=== PATIENT | female | born 1955 | race Caucasian/White ===

== ENCOUNTER 2016-10-06 04:40 | Inpatient (IN) | payer BC ==
--- NOTE | 2016-10-05 13:28 | HP ---
DATE OF ADMISSION: 10/06/2016 Manasa Head is 60-year-old patient seen with symptomatic left knee osteoarthritis. After having treatment options discussed, she elected to proceed with left total knee arthroplasty. Consent was obtained. Medical clearance by Dr. Jaramillo. PAST MEDICAL HISTORY: Hypothyroidism, osteoarthritis. PAST SURGICAL HISTORY: Left knee arthroscopy. DAILY MEDICATIONS: 1. Synthroid. 2. Ibuprofen. [address]. [address] as needed. Allergies are none reported. SOCIAL HISTORY: Patient denies current tobacco use. Physical evaluation of the left knee: Her range of motion is -3/4 to 115 degrees. There is tenderness along the medial and lateral joint lines. Positive medial and lateral Quoc's. Ligaments are stable. There is crepitus along the lateral and patellofemoral compartments with range of motion. There is pain on patellofemoral compression. Hip rotation is without pain. Distal neurovascular exam is intact. Radiographs of the left knee reveal severe lateral and moderate patellofemoral compartment osteoarthritis. IMPRESSION: Left knee osteoarthritis. PLAN: Left total knee arthroplasty.
[2016-10-06] MEDS ORDERED: TRANEXAMIC ACID 1,000 MG in SODIUM CHLORIDE 0.9% 100 ML IVPB ONE ×4 (05:00)
[2016-10-06] MEDS ORDERED: MELOXICAM 7.5 MG TAB PO ONE (05:00)
[2016-10-06] MEDS ORDERED: ACETAMINOPHEN TAB 500 MG TAB PO ONE (05:00)
[2016-10-06] MEDS ORDERED: MIDAZOLAM 2 MG/2 ML VIAL IV PRN (05:58)
[2016-10-06] MEDS ORDERED: LACTATED RINGERS 1,000 ML IV SCH (05:58)
[2016-10-06] MEDS ORDERED: DEXAMETHASONE SOD PHOSPHATE 10 MG/ML 1 ML VIAL IV ONE (05:58)
[2016-10-06] MEDS ORDERED: LIDOCAINE 1% 20 ML VIAL (10MG/ML) FOR IV START INTRADERMA PRN (05:58)
[2016-10-06] MEDS ORDERED: FAMOTIDINE 20 MG/2 ML VIAL IV PRN (05:58)
[2016-10-06] MEDS ORDERED: ONDANSETRON 4 MG/2 ML VIAL IVP ONE (05:58)
[2016-10-06] MEDS ORDERED: ROPIVACAINE 246.25 MG, EPINEPHrine 0.5 MG, KETOROLAC 30 MG, cloNIDine HCL/PF 80 MCG, WA... MISCELLANE ONE ×5 (11:42)
[2016-10-06] MEDS ORDERED: SODIUM CHLORIDE 0.9% 100 ML BAG ONE ×2 (11:53)
[2016-10-06] MEDS ORDERED: MIDAZOLAM 2 MG/2 ML VIAL ONE (11:53)
[2016-10-06] MEDS ORDERED: HYDROmorphone (PF) 1 MG/ML ONE (11:53)
[2016-10-06] MEDS ORDERED: ceFAZolin 10 GM VIAL IVPB ONE (11:53)
[2016-10-06] MEDS ORDERED: SODIUM CHLORIDE 0.9% IRRIG 3,000 ML BAG IRRIGATION ONE (11:53)
[2016-10-06] MEDS ORDERED: ceFAZolin 1,000 MG VIAL ONE (11:53)
[2016-10-06] MEDS ORDERED: LACTATED RINGERS 1,000 ML BAG IV ONE (11:53)
[2016-10-06] MEDS ORDERED: LIDOCAINE 1% INJ 10MG/ML (20 ML MDV) ONE (11:53)
[2016-10-06] MEDS ORDERED: TRANEXAMIC ACID 1,000 MG/10 ML VIAL ONE (11:53)
[2016-10-06] MEDS ORDERED: PROPOFOL 10 MG/ML 20 ML VIAL IV ONE (11:53)
[2016-10-06] MEDS: ceFAZolin 2 GM in SODIUM CHLORIDE 0.9% 100 ML IVPB ONE ×3 (12:06→15:21)
[2016-10-06] MEDS: LACTATED RINGERS 1,000 ML IV ONE ×3 (12:34→15:21)
[2016-10-06] MEDS: ceFAZolin 3,000 MG in SODIUM CHLORIDE 0.9% IRRIGATIO 3,000 ML IRRIGATION ONE ×3 (12:35→15:22)
[2016-10-06] MEDS ORDERED: ROPIVACAINE 1,100 MG, SODIUM CHLORIDE 0.9% 330 ML MISCELLANE PRN ×2 (12:43)
--- NOTE | 2016-10-06 12:44 | P.ONQ ---
Anesthesiology Proc Note - PNB - Peripheral Nerve Block Performed Left Adductor Canal Indication: Acute Post-Operative Pain, Requested by physician (Fernando) Sedation Type: Sedate with meaningful contact maintained Preparation: Sterile Dressing Position: Supine Catheter: Indwelling Needle Types: On-Q Needle Size: 100mm (4") Needle Gauge: 20 Injectate: 0.5% Ropivacaine (see comment for volume) (23cc) Blood Aspirated: No Pain Paresthesia on Injection Noted: No Resistance on Injection: Normal Events: Uneventful and Well Tolerated
[2016-10-06] MEDS ORDERED: ONDANSETRON 4 MG/2 ML VIAL IVP PRN (13:59)
[2016-10-06] MEDS ORDERED: NALOXONE 0.4 MG/ML 1 ML VIAL IV PRN (13:59)
[2016-10-06] MEDS ORDERED: TEMAZEPAM 15 MG CAP PO PRN (13:59)
[2016-10-06] MEDS ORDERED: HYDROcodone/APAP 7.5-325MG 1 EACH TAB PO PRN ×2 (13:59)
[2016-10-06] MEDS ORDERED: HYDROmorphone 1 MG/ML 1 ML SYRINGE IVP PRN ×2 (13:59)
--- NOTE | 2016-10-06 13:59 | P.OP ---
Date of Procedure: 10/06/16 Preoperative Diagnosis: Left knee osteoarthritis Postoperative Diagnosis: Left knee osteoarthritis Procedure(s) Performed: Left total knee arthroplasty Implants: 1. Tavo persona left size 6 cemented cruciate retaining femoral component 2. Tavo persona size D left cemented tibial component 3. Tavo persona 10 mm medial congruent polyethylene tibial insert 4. Tavo persona 35 mm all polyethylene cemented patella Anesthesia: local (Adductor canal block), spinal Surgeon: Ravi King Table Assembler [employer] #1: Sacha Valderrama Estimated Blood Loss (ml): 300 Pathology: other (Bone) Condition: stable Disposition: PACU Indications for Procedure: 60-year-old patient seen with symptomatic left knee osteoarthritis. After having treatment options discussed, she elected to proceed with left total knee arthroplasty. Operative Findings: See description of procedure Description of Procedure: Patient was taken to the operative suite after having undergone an abductor canal block by department of anesthesia. Patient underwent a spinal anesthetic by the department of anesthesia. Patient was given preoperative IV intake antibiotics and TXA. A well-padded tourniquet was placed about the left lower extremity. The lower extremity was then prepped and draped in the normal sterile orthopedic fashion. A standard anterior incision was made sharply through skin. Dissection was taken down through the subcutaneous soft tissues down to the extensor mechanism. A medial arthrotomy was performed, patella was everted and knee was flexed. There was advanced osteoarthritis noted. A proximal tibial cutting guide was positioned. Proximal tibial cut was made. A distal intramedullary femoral cutting guide was positioned, distal femoral cut made. We placed the appropriate sizing guide and selected the appropriate size. A distal 4-in-1 femoral cutting block was positioned, distal femoral cuts were made. We now placed a trial femoral component into position, along with an appropriate size tibial tray and insert. We now took the knee through range of motion and had full extension good flexion and good overall soft tissue balance noted. At this point we're noticing some soft tissue bleeding and the tourniquet was insufflated to 350. The patella was everted and a flush cut made with patellar quad tendon. We templated the patella, appropriate drill holes were made. An appropriate trial patella was positioned, knee was taken through full range of motion with the patella tracking very nicely. The trial patella was removed. Drill holes were made through the femoral component. All trial components were removed after marking off the appropriate rotation of the tibia. Retractors were now positioned along the proximal tibia. An appropriate keel punch was made with the appropriate size tibial guide. At this point appropriate size implants were chosen and opened. The joint was irrigated copiously with pulse lavage mechanical irrigation. The deep soft tissues were infiltrated local analgesic. We mixed antibiotic methylmethacrylate. Once the methyl methacrylate was ready, the tibial component was cemented into place removing any excess methylmethacrylate. The femoral component was cemented into place removing the removing any excess methylmethacrylate. We then inserted the appropriate size polyethylene tibial insert. We made sure that it was locked into position. We took the knee into full extension, and then back in a flexion making sure we had removed any excess methylmethacrylate. The patellar component was then cemented down and secured with clamp. Excess methylmethacrylate removed. We kept the knee in full extension, patellar clamp in position until methylmethacrylate had hardened. Once it had hardened the patellar clamp was removed. The knee was taken through full range of motion. The patella tracked nicely. There was good soft tissue balancing. The tourniquet was now released. A second gram of TXA was given. Additional hemostasis was achieved via electrocautery. The superficial soft tissues were infiltrated local analgesic. The extensor mechanism was repaired with Vicryl. We checked the repair with range of motion and it was stable. The subcutaneous soft tissues were repaired with Vicryl in layers. The skin was approximated with pernio/Dermabond. Sterile dressings were applied followed by loose web roll and Jasper bandage. The patient was transferred to a bed, and taken to recovery in stable and satisfactory condition. Sacha JIMÉNEZ assisted with the procedure.
[2016-10-06] MEDS: LACTATED RINGERS 1,000 ML IV SCH ×3 (14:35→23:31)
[2016-10-06] MEDS: HYDROmorphone 1 MG/ML 1 ML SYRINGE IVP PRN ×5 (15:01→23:17)
--- NOTE | 2016-10-06 15:05 | XR ---
EXAMINATION TYPE: XR knee limited LT DATE OF EXAM: 10/06/2016 2:47 PM CLINICAL HISTORY: Left knee pain and arthritis status post total knee replacement. TECHNIQUE: Portable AP and crosstable lateral views of the left knee are obtained immediately postop eratively. COMPARISON: None FINDINGS: Metallic hardware from total left knee arthroplasty is seen and appears satisfactory in al ignment and position. There is evidence of recent surgery with diffuse subcutaneous gas and soft tis deisy swelling noted. IMPRESSION: METALLIC HARDWARE FROM TOTAL LEFT KNEE ARTHROPLASTY IS SATISFACTORY IN ALIGNMENT.
[2016-10-06] MEDS: traMADol 50 MG TAB PO SCH ×2 (18:07→21:14)
[2016-10-06] MEDS ORDERED: ALPRAZolam 0.25 MG TAB PO PRN (19:11)
[2016-10-06] MEDS: ATORVASTATIN 10 MG TAB PO SCH (20:29)
[2016-10-06] MEDS: ACYCLOVIR 800 MG TAB PO SCH (20:29)
[2016-10-06] MEDS: ceFAZolin 2 GM in SODIUM CHLORIDE 0.9% 100 ML IVPB SCH (20:29)
[2016-10-06] MEDS: SENNOSIDES-DOCUSATE SODIUM 1 EACH TAB PO SCH (20:30)
--- NOTE | 2016-10-06 22:39 | CONS ---
DATE OF CONSULTATION: 10/06/2016 REASON FOR CONSULTATION: Medical management requested by Dr. King. CONSULTATION: This is a 60-year-old patient of Dr. Maureen Jaramillo whose chronic stable medical conditions include hypothyroid, hyperlipidemia, depression. Patient has undergone a left total knee arthroplasty. Post procedure no chest pain or shortness of breath, nausea or vomiting. No dizziness. Patient did tolerate light supper. Pain is controlled. REVIEW OF SYSTEMS: CONSTITUTIONAL: None. HEENT: None. RESPIRATORY: None. CARDIOVASCULAR: None. GASTROINTESTINAL: None. GENITOURINARY: None. MUSCULOSKELETAL: Aches and pains in the joints. Dermatological: None. HEMATOLOGICAL: None. LYMPHATIC: None. PSYCHIATRY: Depression, controlled. NEUROLOGICAL: None. Past medical history of osteoarthritis, hypothyroid, hyperlipidemia, depression, osteoarthritis. PAST SURGICAL HISTORY: Breast surgery, removal ( ) tissue, D&C, arthroscopy left knee, lumpectomy right breast. Past psych history: Anxiety, depression. SOCIAL HISTORY: The patient smoked a pack a day on and off for the last about 10 to 15 years; stopped about 20 years ago. . FAMILY HISTORY: Cancer skin cancer, dementia. HOME MEDICATIONS: 1. Mevacor 40 mg p.o. q.h.s. 2. Synthroid 100 mcg p.o. daily. 3. Motrin 800 mg p.o. t.i.d. p.r.n. 4. [place] 5, 1 tablet p.o. q.6 p.r.n. 5. Prozac 40 mg p.o. daily. 6. Vitamin B12 1000 mcg p.o. daily. 7. Calcium with vitamin D 1 tablet p.o. daily p.r.n. 8. Fiorinal ( ) p.r.n., 9. ( ) 800 mg p.o. b.i.d. 10. Xanax 0.25 p.o. daily p.r.n. ALLERGIES TO ADHESIVE. On examination, temperature 97.9, pulse 57, respiration 16, blood pressure 130/86, pulse ox 95% on room air. GENERAL APPEARANCE: Average built, BMI of ( ), sitting up in bed, not in distress. EYES: Pupils equal. Conjunctivae normal. HEENT: External appearance of nose and ears a normal. Oral cavity normal. NECK: JVD not raised. Mass not palpable. RESPIRATORY: Effort normal. Lungs are clear. CARDIOVASCULAR: First and second sounds normal. No edema. ABDOMEN: Soft, nontender. Liver and spleen not palpable. LYMPHATIC: No lymph nodes palpable in neck or axillae. PSYCHIATRY: Alert and oriented x3. Mood and affect normal. EXTREMITIES : Left knee in a dressing. INVESTIGATIONS: No blood work. ASSESSMENT: 1. Left total knee arthroplasty. 2. Primary osteoarthritis, osteoarthritis, multiple joints. 3. Hypothyroidism. 4. Hyperlipidemia. 5. Depression not otherwise specified. 6. Obesity body mass index 30. PLAN: Resume patient's home medications. For DVT prophylaxis, patient is on Lovenox per Dr. King. Care was discussed with the patient, all questions were answered. Thank you, Dr. King.
[2016-10-07] MEDS: ceFAZolin 2 GM in SODIUM CHLORIDE 0.9% 100 ML IVPB SCH (03:23)
[2016-10-07] MEDS: HYDROmorphone 1 MG/ML 1 ML SYRINGE IVP PRN ×2 (05:34→08:20)
[2016-10-07] MEDS: LEVOTHYROXINE 100 MCG TAB PO SCH (05:40)
[2016-10-07 08:07] LABS: Basophils # (A) 0.1 k/uL (0-0.2); Basophils % (A) 1 %; CHCM 32.7; Eosinophils % (A) 0 %; HCT 30.8 % (34.0-46.0); HDW 2.28; HGB 9.8 gm/dL (11.4-16.0); Luc # (Auto) 0.19; Luc % (Auto) 2; Lymphocytes # (A) 0.9 k/uL (1.0-4.8); Lymphocytes % (A) 9 %; MCH 31.4 pg (25.0-35.0); MCV 98.1 fL (80.0-100.0); Mean Platelet Volume 8.2; Monocytes # (A) 0.5 k/uL (0-1.0); Monocytes % (A) 5 %; Neutrophils # (A) 8.2 k/uL (1.3-7.7); Neutrophils % (A) 82 %; RBC 3.13 m/uL (3.80-5.40); RDW 12.9 % (11.5-15.5); WBC (Perox) 10.62
[2016-10-07] MEDS: FAMOTIDINE 20 MG TAB PO SCH (08:21)
[2016-10-07] MEDS: MELOXICAM 7.5 MG TAB PO SCH (08:21)
[2016-10-07] MEDS: FLUoxetine HCL 20 MG CAP PO SCH (08:21)
[2016-10-07] MEDS: ENOXAPARIN 30 MG/0.3 ML SYRINGE SQ SCH ×2 (08:21→20:45)
[2016-10-07] MEDS: ACYCLOVIR 800 MG TAB PO SCH ×2 (08:22→20:44)
[2016-10-07] MEDS: CYANOCOBALAMIN 500 MCG TAB PO SCH (08:22)
--- NOTE | 2016-10-07 08:46 | P.PN ---
Progress Note - Text The patient is status post left adductor canal catheter placement. The catheter was placed for postoperative pain control, status post total left knee arthroplasty. Ropivacaine 0.2% is infusing at 12 mLs per hour. The patient has no complaints of[ ] lower extremity numbness or weakness. Patient's VAS score is 3-10. Assessment: Patient's adductor canal catheter is in place and working appropriately. Plan: continue infusion and adjust it as needed.
[2016-10-07] MEDS: traMADol 50 MG TAB PO SCH ×4 (09:16→22:31)
[2016-10-07] MEDS: MULTIVITAMINS, THERA 1 EACH TAB PO SCH (12:15)
[2016-10-07] MEDS: hydrOXYzine PAMOATE 25 MG CAP PO PRN ×2 (12:16→18:19)
--- NOTE | 2016-10-07 14:34 | P.PN ---
Subjective Principal diagnosis: Status post left total knee arthroplasty Patient seen today resting in her hospital bed, her is present at bedside. Patient appears comfortable, no acute problems. She's been ambulating with therapy at this time. She is tolerating a regular diet. In her catheter was discontinued, no issues of bleeding. She denies headaches, lightheadedness, chest pain, shortness of breath, fever chills. Objective - Vital Signs Vital signs: Vital Signs Temp 97.9 F 10/07/16 14:32 Pulse 73 10/07/16 14:32 Resp 16 10/07/16 14:32 BP 100/51 10/07/16 14:32 Pulse Ox 97 10/07/16 14:32 Intake & Output 10/06/16 10/07/16 10/07/16 18:59 06:59 18:59 Intake Total 2681 360 Output Total 850 2100 300 Balance 1831 -2100 60 Intake: IV 2201 Oral 480 360 Output: Urine 550 2100 300 Uretheral (Thompson) 2100 300 Estimated Blood Loss 300 Other: Voiding Method Indwelling Catheter Indwelling Catheter Indwelling Catheter - Exam Left lower extremity: Incision is clean, dry and intact. Minimal soft tissue swelling present around the knee. Calf is soft, no tenderness with palpation. Plantar flexion, dorsiflexion, EHL, FHL are intact. Sensory exam to light touch throughout the extremities intact, dorsal pedis pulses 2+. - Labs CBC & Chem 7: 10/07/16 07:27 Labs: Abnormal Lab Results - Last 24 Hours (Table) 10/07/16 Range/Units 07:27 RBC 3.13 L (3.80-5.40) m/uL Hgb 9.8 L (11.4-16.0) gm/dL Hct 30.8 L (34.0-46.0) % Neutrophils # 8.2 H (1.3-7.7) k/uL Lymphocytes # 0.9 L (1.0-4.8) k/uL Assessment and Plan Plan: Assessment: 1. Postop day #1 status post left total knee arthroplasty Plan: 1. Pain control, continue use of oral medication 2. Continue with CPM and physical therapy 3. Daily dressing changes/ice and elevate 4. Encourage incentive spirometer 5. GI and DVT prophylaxis, continue Lovenox 6. Medical recommendations 7. Discharge planning: Patient will be likely discharged home tomorrow Time with Patient: Less than 30
[2016-10-07] MEDS ORDERED: HYDROcodone/APAP 10-325MG 1 EACH TAB PO PRN (17:32)
[2016-10-07] MEDS: HYDROcodone/APAP 10-325MG 1 EACH TAB PO PRN (18:20)
[2016-10-07] MEDS ORDERED: HYDROmorphone 1 MG/ML 1 ML SYRINGE IVP PRN (18:34)
[2016-10-07] MEDS: ATORVASTATIN 10 MG TAB PO SCH (20:44)
[2016-10-07] MEDS: SENNOSIDES-DOCUSATE SODIUM 1 EACH TAB PO SCH (20:44)
[2016-10-08 01:15] VITALS: RESP 16
[2016-10-08] MEDS: HYDROcodone/APAP 10-325MG 1 EACH TAB PO PRN ×2 (05:39→10:55)
[2016-10-08] MEDS: LEVOTHYROXINE 100 MCG TAB PO SCH (05:39)
--- NOTE | 2016-10-08 07:57 | PN ---
DATE OF SERVICE: 10/07/2016 PRESENTING COMPLAINT: Knee surgery. INTERVAL HISTORY: Patient is status post knee surgery, doing well. Did not sleep too well last night, tolerated a diet. No chest pains, short of breath, nausea or vomiting. Did work with Physical Therapy. I saw the patient yesterday on 10/07/2016. Review of systems done for constitutional, cardiovascular, GI, pulmonary, musculoskeletal; relevant findings as above. Current medications are reviewed. On examination, temperature 97.9, pulse 93, respirations 16, blood pressure 100/71, pulse ox 97% on room air. GENERAL APPEARANCE: Lying in bed, comfortable. EYES: Pupils equal. Conjunctivae normal. NECK: JVD not raised. Mass not palpable. Respiratory effort normal. Lungs are clear. CARDIOVASCULAR: First and second sounds normal. No edema. ABDOMEN: Soft, nontender. Liver and spleen are not palpable. PSYCHIATRY: Alert and oriented x3. Mood and affect was normal. INVESTIGATIONS: White count 10, hemoglobin 9.8. ASSESSMENT: 1. Left total knee arthroplasty. 2. Hypothyroidism. 3. Hyperlipidemia. 4. Depression, not otherwise specified. 5. Obesity, body mass index of 30. PLAN: Patient is clinically doing well. Continue current medication and treatment plan. Thank you Dr. King.
[2016-10-08] MEDS: MELOXICAM 7.5 MG TAB PO SCH (10:02)
[2016-10-08] MEDS: CYANOCOBALAMIN 500 MCG TAB PO SCH (10:02)
[2016-10-08] MEDS: ACYCLOVIR 800 MG TAB PO SCH (10:03)
[2016-10-08] MEDS: FLUoxetine HCL 20 MG CAP PO SCH (10:03)
[2016-10-08] MEDS: ENOXAPARIN 30 MG/0.3 ML SYRINGE SQ SCH (10:03)
[2016-10-08] MEDS: FAMOTIDINE 20 MG TAB PO SCH (10:03)
[2016-10-08] MEDS: traMADol 50 MG TAB PO SCH ×2 (10:14→14:29)
--- NOTE | 2016-10-08 11:15 | P.PN ---
Subjective Principal diagnosis: Status post left total knee arthroplasty Patient seen today resting in her hospital bed. Patient appears comfortable, no acute problems. Patient did have breakthrough pain last night that required IV pain medication, this has improved. She denies headaches, lightheadedness, chest pain, shortness of breath, fever chills. Objective - Vital Signs Vital signs: Vital Signs Temp 99.4 F 10/08/16 07:00 Pulse 95 10/08/16 07:00 Resp 16 10/08/16 07:00 BP 120/72 10/08/16 07:00 Pulse Ox 93 L 10/08/16 07:00 Intake & Output 10/07/16 10/08/16 10/08/16 18:59 06:59 18:59 Intake Total 720 Output Total 300 Balance 420 Weight 79.379 kg Intake: Oral 720 Output: Urine 300 Uretheral (Thompson) 300 Other: Voiding Method Indwelling Catheter Toilet # Voids 1 - Exam Left lower extremity: Incision is clean, dry and intact. Minimal soft tissue swelling present around the knee. Calf is soft, no tenderness with palpation. Plantar flexion, dorsiflexion, EHL, FHL are intact. Sensory exam to light touch throughout the extremities intact, dorsal pedis pulses 2+. - Labs CBC & Chem 7: 10/07/16 07:27 Assessment and Plan Plan: Assessment: 1. Postop day #2 status post left total knee arthroplasty Plan: 1. Pain control, continue use of oral medication 2. Continue with CPM and physical therapy 3. Daily dressing changes/ice and elevate 4. Encourage incentive spirometer 5. GI and DVT prophylaxis, discharged home on aspirin 325 mg twice a day 6. Medical recommendations 7. Discharge planning: Patient will be discharged home today Time with Patient: Less than 30
--- NOTE | 2016-10-08 11:17 | P.DS ---
Providers Date of admission: 10/06/16 10:44 Expected date of discharge: 10/08/16 Attending physician: Ravi King Consults: 10/06/16 13:59 Consult Physician Routine Consulting Provider: Ariel Tejeda Consult Reason/Comments: Medical management Do you want consulting provider notified?: Yes Primary care physician: Maureen Jaramillo [facility] Course: Date of admission: 10/06/2016 Date of discharge: 10/08/2016 Admission diagnosis: Status post left total knee arthroplasty Discharge diagnosis: Same Attending physician: Dr. King Surgical procedures: Left total knee arthroplasty Brief history: Patient is a 60-year-old female with a history of progressive primary left knee osteoarthritis. At this point patient has failed conservative treatment measures and has opted to proceed with a elective left total knee arthroplasty. Hospital course: Details of patient's surgery can be found in operative report. Patient tolerated the procedure well and was subsequently transported to orthopedic floor. Patient's orthopeidc and medical care was provided daily. Patient had daily laboratory tests performed for evaluation of overall blood counts. Patient had daily physical therapy to include strengthening range of motion as well as education with walker ambulation. Patient had daily CPM usage as part of their physical therapy program. Patient was treated with Lovenox for their postoperative DVT prophylaxis during their inpatient stay. Patient was noted to have a relatively uneventful postoperative course. Patient reported satisfactory pain control with oral pain medications by postoperative day 0. Patient showed satisfactory progress with physical therapy. Patient moved steadily through the program and had no difficulty meeting the goals by postoperative day 2. Given patient's otherwise satisfactory course and having met physical therapy goals, plan is to discharge patient home on postoperative day 2. Discharge condition/disposition: Patient will be discharged home in stable condition. Discharge medications: Instructions are given on resumption of patient's normal daily medications per primary care recommendation, in addition patient will be prescribed [place] 10 mg/325 mg, tramadol 50 mg, Colace 100 mg, aspirin 325 mg. Discharge instructions: 1. Wound care and infection precautions, keep incision dry and covered while showering, no lotions, creams, moisturizers. No soaking, tubs, pools, hottubs. Do not scrub over the incision. 2. Weight-bear as tolerated with walker / cane until follow-up. 3. Ice and elevate when necessary. Do not exceed 20 minutes per hour with ice pack. 4. Utilize compression sleeve until seen at first follow up appointment. 5. Visiting nursing care. 6. Home physical therapy including home CPM. 7. Pain meds and anticoagulants per prescription. 8. Pain medication has potential to cause constipation. Increase oral fluid and fiber intake. Contact primary care provider if you have not had a bowel movement within 48 hours after discharge 9. No anti-inflammatory medication until discussed at first post operative visit, this including Motrin, Aleve, Mobic, Diclofenac. 10. Follow up in office at 2 weeks postop with Emir Valderrama PA-C 11. Follow up with your primary care doctor 7-10 days after discharge. 12. Contact [facility] with any questions, . Procedures: Left total knee arthroplasty Patient Condition at Discharge: Good Plan - Discharge Summary New Discharge Prescriptions: Aspirin 325 mg PO BID #60 tab Docusate [Colace] 100 mg PO DAILY #20 capsule Hydrocodone/Acetaminophen [[place] 10-325] 1 - 2 each PO Q6H PRN #60 tab PRN Reason: Pain traMADol HCl [Ultram] 50 mg PO Q6H PRN #40 tab PRN Reason: Pain Discharge Medication List ALPRAZolam [Xanax] 0.25 mg PO DAILY PRN 09/24/16 [History] Acetaminophen [Tylenol Arthritis] 650 mg PO Q6H PRN 09/24/16 [History] Acyclovir [Zovirax] 800 mg PO BID 09/24/16 [History] Butalb/Asprin/Caff 50-325-40Mg [Fiorinal 50-325-40 MG] 1 - 2 cap PO BID PRN [History] Calcium Carbonate/Vitamin D3 [Calcium 500-Vit D3 600 Tablet] 1 tab PO DAILY [History] Cyanocobalamin [Vitamin B-12] 1,000 mcg PO DAILY 09/24/16 [History] FLUoxetine HCL [PROzac] 40 mg PO DAILY 09/24/16 [History] Levothyroxine Sodium [Synthroid] 100 mcg PO DAILY 09/24/16 [History] Lovastatin [Mevacor] 40 mg PO HS 09/24/16 [History] Aspirin 325 mg PO BID #60 tab 10/08/16 [Rx] Docusate [Colace] 100 mg PO DAILY #20 capsule 10/08/16 [Rx] Hydrocodone/Acetaminophen [[place] 10-325] 1 - 2 each PO Q6H PRN #60 tab 10/08/16 [Rx] traMADol HCl [Ultram] 50 mg PO Q6H PRN #40 tab 10/08/16 [Rx] Follow up Appointment(s)/Referral(s): [facility], [NON-STAFF] - Sacha Valderrama PAC [PHYSICIAN REPA[employer]] - 2 Weeks Activity/Diet/Wound Care/Special Instructions: Walker - has at home CPM - ordered by Dr. Freeman' office - call for delivery upon discharge Orthopedic Discharge Instructions: 1. Wound care and infection precautions, keep incision dry and covered while showering, no lotions, creams, moisturizers. No soaking, pools, hot tubs. Do not scrub over incision. 2. Weight-bear as tolerated with walker / cane until follow-up. 3. Ice and elevate when necessary. Do not exceed 20 minutes per hour with ice pack. 4. Utilize compression sleeve until seen at first follow up appointment. 5. Visiting nursing care. 6. Home physical therapy including home CPM. 7. Pain meds and anticoagulants per prescription. 8. Pain medication has potential to cause constipation. Increase oral fluid and fiber intake. Contact primary care provider if you have not had a bowel movement within 48 hours after discharge. 9. No anti-inflammatory medication until discussed at first post operative visit, this including Motrin, Aleve, Mobic, Diclofenac. 10. Follow up in office at 2 weeks postop with Emir Valderrama PA-C 11. Follow up with your primary care doctor 7-10 days after discharge. 12. Contact [facility] with any questions, . Discharge Disposition: HOME WITH HOME HEALTH SERVICES
[2016-10-08] MEDS: MULTIVITAMINS, THERA 1 EACH TAB PO SCH (14:29)
[2016-10-08 14:40] VITALS: BP 113/78; PULSE 89; TEMP 97.5
--- NOTE | 2016-10-08 21:55 | PN ---
DATE OF SERVICE: 10/08/2016 PRESENTING COMPLAINT: Knee surgery. INTERVAL HISTORY: Patient was seen by me earlier today, status post knee surgery; doing much better. She has been out of bed and did work with Physical Therapy. Did tolerate her meals. Review of systems done for constitutional, cardiovascular, GI, pulmonary; relevant findings as above. Current medications are reviewed. On examination, temperature 99.4, pulse 95, respiration 16, blood pressure 120/72, pulse ox 93% on room air. GENERAL APPEARANCE: Sitting up, comfortable. EYES: Pupils equal. Conjunctivae normal. NECK: JVD not raised. Mass not palpable. RESPIRATORY: Effort normal. Lungs are clear. CARDIOVASCULAR: First and second sounds normal. No edema. ABDOMEN: Soft, non-tender. Liver and spleen not palpable. PSYCHIATRY: Alert and oriented x3. Mood and affect normal. INVESTIGATIONS: No blood work from today. ASSESSMENT: 1. Left total knee arthroplasty. 2. Hypothyroidism. 3. Hyperlipidemia. 4. Depression not otherwise specified. 5. Obesity; body mass index of 30. PLAN: Patient is stable, doing well. Continue current medication and treatment plan. Thank you, Dr. King.
== END 2016-10-08 15:33 | disposition home health service (06) | DRG 470 ==
LOC: 2ORMAIN 10:44 → 3SUR 14:25
PROVIDERS: ADMIT Orthopaedic Surgery; ATTEND Orthopaedic Surgery
PROC: 0SRD0J9 Replacement of Left Knee Joint with Synthetic Substitute, Cemented, Open Approach (ICD-10-PCS; principal; 2016-10-06 12:45)
DX: M17.12 Unilateral primary osteoarthritis, left knee (principal); F32.9 Major depressive disorder, single episode, unspecified; E03.9 Hypothyroidism, unspecified; E78.5 Hyperlipidemia, unspecified; Z87.891 Personal history of nicotine dependence; Z79.1 Long term (current) use of non-steroidal anti-inflammatories (NSAID); Z79.899 Other long term (current) drug therapy
CPT/HCPCS: 85025; 88300; 94760